=== PATIENT | female | born 1935 | race Caucasian/White ===

== ENCOUNTER 2020-09-13 10:58 | Inpatient (IN) | payer BC, MEDICARE ==
[2020-09-13] MEDS ORDERED: Zolpidem 5 MG Tab PO PRN (11:40)
[2020-09-13] MEDS: Acetaminophen/HYDROcodone 325-10 MG Tab PO PRN ×2 (15:45→23:11)
[2020-09-13] MEDS: Amitriptyline 10 MG Tab PO SCH (19:44)
[2020-09-13] MEDS: Ascorbic Acid 500 MG Tab PO SCH (19:45)
[2020-09-13] MEDS ORDERED: CALCIUM CARBONATE PO SCH (20:00)
[2020-09-13] MEDS ORDERED: [UNRECOGNIZED DRUG - OTHER] PO SCH (20:00)
[2020-09-13] MEDS ORDERED: Non-Formulary Medication 1 Each (Ascorbic Acid [Vitamin C] 1,000 MG) PO SCH (20:00)
[2020-09-13] MEDS ORDERED: VITAMIN D3 PO SCH (20:00)
[2020-09-14] MEDS: Losartan 25 MG Tab PO SCH (08:04)
[2020-09-14] MEDS: Thiamine 100 MG Tab PO SCH (08:04)
[2020-09-14] MEDS: Ascorbic Acid 500 MG Tab PO SCH ×2 (08:04→19:59)
[2020-09-14] MEDS: Calcium Carbonate/Vitamin D3 1500 MG-400 Units Tab PO SCH ×2 (08:04→19:59)
[2020-09-14] MEDS: Cholecalciferol (Vitamin D3) 2,000 Unit Cap PO SCH (08:05)
--- NOTE | 2020-09-14 09:05 | PCM.HP.2 ---
H&P History of Present Illness - General Date of Service: 09/13/20 Admit Problem/Dx: Admission Diagnosis/Problem Admission Diagnosis/Problem Weakness - History of Present Illness Initial Comments - Free Text/Narative: This is a 84yo F here for post op rehabilitation and care post laparoscopic reduction of incarcerated spigelian hernia and repair with primary closure and mesh and Covid diagnosis. Patient continues to have oral pain meds on board with PT/OT rehabilitation in progress. Duration of Symptoms: Reports: Chronic Location: Reports: Generalized Severity: Moderate Improves with: Reports: None Worsens with: Reports: None Associated Symptoms: Reports: Weakness Lower Back Pain Score (Numeric/FACES): 5 - Related Data Allergies/Adverse Reactions: Allergies Allergy/AdvReac Type Severity Reaction Status Date / Time codeine Allergy Vomiting Verified 09/13/20 11:21 shellfish derived Allergy Vomiting Verified 09/13/20 11:21 Sulfa (Sulfonamide Allergy Itching Verified 09/13/20 11:20 Antibiotics) zolpidem [From Ambien] AdvReac Intermediate Other Verified 09/14/20 04:58 Home Medications: Home Meds Alendronate Sodium [Fosamax] 70 mg PO PRINGLE 09/13/20 [History] Amitriptyline [Elavil] 30 mg PO BEDTIME 09/13/20 [History] Ascorbic Acid [Vitamin C] 1,000 mg PO BID 09/13/20 [History] Calcium Carbonate/Vitamin D3 [Calcium Carbonate/Vitamin D 600 MG-200 Unit] 1 tab PO BID 09/13/20 [History] Cholecalciferol (Vitamin D3) [Vitamin D3] 2,000 unit PO DAILY 09/13/20 [History] Hydrocodone/Acetaminophen [Hydrocodon-Acetaminophn 10-325] 1 tab PO TID PRN 09/13/20 [History] Losartan [Cozaar] 25 mg PO DAILY 09/13/20 [History] Thiamine [Vitamin B-1] 1 tab PO DAILY 09/13/20 [History] Zolpidem [Ambien] 0.5 tab PO BEDTIME PRN 09/13/20 [History] Past Medical History Cardiovascular History: Reports: Hypertension Gastrointestinal History: Reports: Bowel Obstruction Musculoskeletal History: Reports: Back Pain, Chronic - Infectious Disease History Infectious Disease History: Reports: Other (See Below) Other Infectious Disease History: Current Covid-19 - Past Surgical History HEENT Surgical History: Reports: Cataract Surgery Cardiovascular Surgical History: Reports: None GI Surgical History: Reports: Hernia Repair/Other Female Surgical History: Reports: Hysterectomy Musculoskeletal Surgical History: Reports: Knee Replacement Social & Family History - Family History Family Medical History: Unobtainable - Tobacco Use Tobacco Use Status *Q: Never Tobacco User Second Hand Smoke Exposure: No - Caffeine Use Caffeine Use: Reports: Coffee, Soda - Recreational Drug Use Recreational Drug Use: No H&P Review of Systems - Review of Systems: Review Of Systems: Comprehensive ROS is negative, except as noted in HPI. Exam - Exam Exam: See Below - Vital Signs Vital Signs: Last Vital Signs Temp 37.2 C 09/14/20 08:00 Pulse 99 09/14/20 08:00 Resp 18 09/14/20 08:00 BP 106/94 H 09/14/20 08:04 Pulse Ox 94 L 09/14/20 08:00 Weight: 59.732 kg - Exam General: Alert, Oriented, Cooperative HEENT: PERRLA, Conjunctiva Clear, EACs Clear Neck: Supple, Trachea Midline Lungs: Normal Respiratory Effort, Rhonchi Cardiovascular: Regular Rate, Regular Rhythm GI/Abdominal Exam: Normal Bowel Sounds Back Exam: Normal Inspection Extremities: Normal Inspection Peripheral Pulses: 2+: Dorsalis Pedis (L), Dorsalis Pedis (R) Skin: Warm, Dry, Intact - Patient Data Result Diagrams: 09/18/20 10:30 09/18/20 10:30 Sepsis Event Note - Evaluation Sepsis Screening Result: No Definite Risk - Focused Exam Vital Signs: Vital Signs Temp Pulse Resp BP BP Pulse Ox 09/14/20 08:04 106/94 H 09/14/20 08:00 37.2 C 99 18 106/94 H 94 L - Problem List (1) Physical deconditioning SNOMED Code(s): 99543107002157 ICD Code: R53.81 - OTHER MALAISE Status: Acute Current Visit: Yes (2) COVID-19 SNOMED Code(s): 936075489 ICD Code: U07.1 - COVID-19 Status: Acute Current Visit: Yes (3) Post-op pain SNOMED Code(s): 957305172 ICD Code: G89.18 - OTHER ACUTE POSTPROCEDURAL PAIN Status: Acute Current Visit: Yes Problem List Initiated/Reviewed/Updated: Yes Orders Last 24hrs: Active Orders 24 hr Category Date Time Status Admission Status [Patient Status] [ADT] Routine ADT 09/13/20 14:15 Active Nurse Communication: Isolation [RC] ASDIRECTED Care 09/14/20 08:18 Active OT Evaluation and Treatment [CONS] Routine Cons 09/13/20 11:27 Active PT Evaluation and Treatment [CONS] Routine Cons 09/13/20 11:24 Active Regular Diet [DIET] Diet 09/13/20 Dinner Ordered Soft Diet [DIET] Diet 09/13/20 Dinner Ordered Acetaminophen/HYDROcodone [[place] 325-10 MG] Med 09/13/20 12:40 Active 1 tab PO TID PRN Alendronate [Fosamax] Med 09/18/20 08:37 Ordered 70 mg PO PRINGLE Amitriptyline [Elavil] Med 09/13/20 20:00 Active 30 mg PO BEDTIME Ascorbic Acid [Vitamin C] Med 09/13/20 20:00 Active 1,000 mg PO BID Calcium Carbonate/Vitamin D3 [Caltrate 600+D 1500 MG- Med 09/14/20 08:00 Active 400 Units] 1 tab PO BID Cholecalciferol (Vitamin D3) [Vitamin D3] Med 09/14/20 08:00 Active 2,000 unit PO DAILY Losartan [Cozaar] Med 09/14/20 08:00 Active 25 mg PO DAILY Thiamine [Vitamin B-1] Med 09/14/20 08:00 Active 100 mg PO DAILY Isolation [COMM] Routine Oth 09/14/20 08:17 Active Resuscitation Status Routine Resus Stat 09/13/20 11:23 Ordered Medication Orders Hydrocodone Bitart/Acetaminophen ([place] 325-10 Mg) 1 tab PO TID PRN PRN Reason: Pain Last Admin: 09/13/20 23:11 Dose: 1 tab Documented by: [id number] Admin: 09/13/20 15:45 Dose: 1 tab Documented by: REAL Alendronate Sodium (Fosamax) 70 mg PO PRINGLE EMELINA Amitriptyline HCl (Elavil) 30 mg PO BEDTIME EMELINA Last Admin: 09/13/20 19:44 Dose: 30 mg Documented by: [id number] Ascorbic Acid (Vitamin C) 1,000 mg PO BID EMELINA Last Admin: 12/02/20 08:04 Dose: 1,000 mg Documented by: Admin: 09/13/20 19:45 Dose: 1,000 mg Documented by: LOUISA Calcium Carbonate (Caltrate 600+D 1500 Mg-400 Units) 1 tab PO BID [facility] Last Admin: 09/14/20 08:04 Dose: 1 tab Documented by: ASHUTOSH Cholecalciferol (Vitamin D3) 2,000 unit PO DAILY [facility] Last Admin: 09/14/20 08:05 Dose: 2,000 unit Documented by: ASHUTOSH Losartan Potassium (Cozaar) 25 mg PO DAILY [facility] Last Admin: 09/14/20 08:04 Dose: 25 mg Documented by: ASHUTOSH Thiamine HCl (Vitamin B-1) 100 mg PO DAILY [facility] Last Admin: 09/14/20 08:04 Dose: 100 mg Documented by: ASHUTOSH Assessment/Plan Comment:: Patient to continue with PT/OT and pain management. She will remain isolated in the Covid unit until she has completed her quarantine.
[2020-09-14] MEDS ORDERED: Menthol/Zinc Oxide Ointment 113 GM Tube TOP ONE (10:01)
[2020-09-14] MEDS: Menthol/Zinc Oxide Ointment 113 GM Tube TOP PRN (10:04)
[2020-09-14] MEDS ORDERED: Ondansetron 4 MG Tab.DIS ONE (10:59)
[2020-09-14] MEDS ORDERED: Tuberculin, PPD 5 Units/0.1 ML 1 ML MDV IDERM ONE (11:00)
[2020-09-14] MEDS: Ondansetron 4 MG Tab.DIS PO PRN (11:04)
[2020-09-14] MEDS: Acetaminophen/HYDROcodone 325-10 MG Tab PO PRN (18:20)
[2020-09-14] MEDS: Amitriptyline 10 MG Tab PO SCH (19:59)
[2020-09-15] MEDS: Cholecalciferol (Vitamin D3) 2,000 Unit Cap PO SCH (08:29)
[2020-09-15] MEDS: Acetaminophen/HYDROcodone 325-10 MG Tab PO PRN (08:30)
[2020-09-15] MEDS: Ascorbic Acid 500 MG Tab PO SCH ×2 (08:30→19:29)
[2020-09-15] MEDS: Thiamine 100 MG Tab PO SCH (08:31)
[2020-09-15] MEDS: Losartan 25 MG Tab PO SCH (08:32)
[2020-09-15] MEDS: Calcium Carbonate/Vitamin D3 1500 MG-400 Units Tab PO SCH ×2 (08:32→19:30)
[2020-09-15] MEDS: Menthol/Zinc Oxide Ointment 113 GM Tube TOP PRN (12:06)
[2020-09-15] MEDS: Acetaminophen/HYDROcodone 325-10 MG Tab PO SCH ×2 (15:20→19:30)
[2020-09-15] MEDS: Amitriptyline 10 MG Tab PO SCH (19:29)
[2020-09-16] MEDS: Acetaminophen/HYDROcodone 325-10 MG Tab PO SCH ×4 (05:21→16:54)
[2020-09-16] MEDS: Calcium Carbonate/Vitamin D3 1500 MG-400 Units Tab PO SCH ×2 (07:56→20:04)
[2020-09-16] MEDS: Losartan 25 MG Tab PO SCH (07:57)
[2020-09-16] MEDS: Cholecalciferol (Vitamin D3) 2,000 Unit Cap PO SCH (07:57)
[2020-09-16] MEDS: Thiamine 100 MG Tab PO SCH (07:57)
[2020-09-16] MEDS: Ascorbic Acid 500 MG Tab PO SCH ×2 (07:57→20:03)
[2020-09-16] MEDS: Amitriptyline 10 MG Tab PO SCH (20:03)
[2020-09-16] MEDS: Acetaminophen/HYDROcodone 325-10 MG Tab PO PRN (20:04)
[2020-09-17] MEDS ORDERED: Melatonin 3 MG Tab PO PRN (07:07)
[2020-09-17] MEDS: Acetaminophen/HYDROcodone 325-10 MG Tab PO PRN ×2 (08:15→19:38)
[2020-09-17] MEDS: Cholecalciferol (Vitamin D3) 2,000 Unit Cap PO SCH (08:16)
[2020-09-17] MEDS: Calcium Carbonate/Vitamin D3 1500 MG-400 Units Tab PO SCH ×2 (08:16→19:39)
[2020-09-17] MEDS: Losartan 25 MG Tab PO SCH (08:17)
[2020-09-17] MEDS: Ascorbic Acid 500 MG Tab PO SCH ×2 (08:19→19:40)
[2020-09-17] MEDS: Thiamine 100 MG Tab PO SCH (08:19)
[2020-09-17] MEDS ORDERED: methylPREDNISolone Sodium Succinate 125 MG/2 ML SDV IM ONE (14:45)
[2020-09-17] MEDS ORDERED: Albuterol 8 GM Inhaler INH PRN (14:45)
--- NOTE | 2020-09-17 14:57 | PCM.PN ---
- General Info Date of Service: 09/17/20 Admission Dx/Problem (Free Text): Admission Diagnosis/Problem Admission Diagnosis/Problem Weakness Subjective Update: Patient with saturations of 89%. She denies shortness of breath or cough. No fever. Patient is here for weakness and nursing states that she only ambulates to go to the bathroom and isn't eating very much at meals. Functional Status: Reports: Ambulating, Urinating, Incentive Spirometry - Review of Systems General: Reports: Weakness Pulmonary: Reports: Wheezing Cardiovascular: Reports: No Symptoms Skin: Reports: No Symptoms Neurological: Reports: No Symptoms - Patient Data Vitals - Most Recent: Last Vital Signs Temp 37.1 C 09/17/20 08:00 Pulse 90 09/17/20 08:00 Resp 16 09/17/20 08:00 BP 108/52 L 09/17/20 08:17 Pulse Ox 92 L 09/17/20 08:00 Weight - Most Recent: 59.732 kg Med Orders - Current: Current Medications Hydrocodone Bitart/Acetaminophen ([place] 325-10 Mg) 1 tab PO Q6H PRN PRN Reason: Pain (severe 7-10) Last Admin: 09/17/20 08:15 Dose: 1 tab Documented by: Albuterol (Ventolin Hfa) 0 gm INH Q4H PRN PRN Reason: Wheezing Alendronate Sodium (Fosamax) 70 mg PO Pruett@0730 [facility] Amitriptyline HCl (Elavil) 30 mg PO BEDTIME [facility] Last Admin: 09/16/20 20:03 Dose: 30 mg Documented by: Ascorbic Acid (Vitamin C) 1,000 mg PO BID [facility] Last Admin: 09/17/20 08:19 Dose: 1,000 mg Documented by: Calamine/Phenol (Calmoseptine) 1 gm TOP QID PRN PRN Reason: Rash Last Admin: 09/15/20 12:06 Dose: 1 applic Documented by: Calcium Carbonate (Caltrate 600+D 1500 Mg-400 Units) 1 tab PO BID [facility] Last Admin: 09/17/20 08:16 Dose: 1 tab Documented by: Cholecalciferol (Vitamin D3) 2,000 unit PO DAILY [facility] Last Admin: 09/17/20 08:16 Dose: 2,000 unit Documented by: Losartan Potassium (Cozaar) 25 mg PO DAILY [facility] Last Admin: 09/17/20 08:17 Dose: 25 mg Documented by: Melatonin (Melatonin) 6 mg PO BEDTIME PRN PRN Reason: Insomnia Ondansetron HCl (Zofran Odt) 4 mg PO Q6H PRN PRN Reason: Nausea/Vomiting Last Admin: 09/14/20 11:04 Dose: 4 mg Documented by: Senna/Docusate Sodium (Senna Plus) 1 tab PO BEDTIME EMELINA Thiamine HCl (Vitamin B-1) 100 mg PO DAILY EMELINA Last Admin: 09/17/20 08:19 Dose: 100 mg Documented by: Discontinued Medications Hydrocodone Bitart/Acetaminophen ([place] 325-10 Mg) 1 tab PO TID PRN PRN Reason: Pain Last Admin: 09/15/20 08:30 Dose: 1 tab Documented by: Hydrocodone Bitart/Acetaminophen ([place] 325-10 Mg) 1 tab PO Q4H EMELINA Last Admin: 09/16/20 16:54 Dose: Not Given Documented by: Calamine/Phenol (Calmoseptine) Confirm Administered Dose 113 gm TOP .STK-MED ONE Stop: 09/14/20 10:02 Last Admin: 09/14/20 10:57 Dose: Not Given Documented by: Methylprednisolone Sodium Succinate (Solu-Medrol) 125 mg IM ONETIME ONE Stop: 09/17/20 14:46 Ondansetron HCl (Zofran Odt) Confirm Administered Dose 4 mg .ROUTE .STK-MED ONE Stop: 09/14/20 11:00 Last Admin: 09/14/20 11:07 Dose: Not Given Documented by: Tuberculin PPD (Aplisol) 5 unit IDERM ONETIME ONE Stop: 09/14/20 11:01 Last Admin: 09/14/20 14:49 Dose: 5 unit Documented by: Zolpidem Tartrate (Ambien) 2.5 mg PO BEDTIME PRN PRN Reason: Insomnia Last Admin: 09/13/20 19:48 Dose: 2.5 mg Documented by: - Exam General: Alert, Oriented, Cooperative Neck: Supple Lungs: Normal Respiratory Effort, Decreased Breath Sounds, Wheezing, Other (decreased BS LLL and wheezing to DAVID) Cardiovascular: Regular Rate, Regular Rhythm, No Murmurs, Murmurs Extremities: Normal Inspection Skin: Warm, Dry, Intact Neurological: No New Focal Deficit Psy/Mental Status: Alert, Normal Affect, Normal Mood Physical Findings Comments:: needs assistance to sit up in bed Sepsis Event Note - Evaluation Sepsis Screening Result: No Definite Risk - Focused Exam Vital Signs: Vital Signs Temp Pulse Resp BP BP Pulse Ox 09/17/20 08:17 108/52 L 09/17/20 08:00 37.1 C 90 16 108/52 L 92 L - Problem List Review Problem List Initiated/Reviewed/Updated: Yes - My Orders Last 24 Hours: My Active Orders 09/17/20 14:44 Chest 1V Frontal [CR] Stat 09/17/20 14:45 RT Post Treatment Assessment [RC] Click to Edit Albuterol [Ventolin HFA] 2 gm INH Q4H PRN 09/18/20 07:30 Alendronate [Fosamax] 70 mg PO Pruett@0730 - Assessment Assessment:: CXR, solumedrol, and albuterol inhaler Q4 hours. Incentive spirometry every 4 hours with inhaler treatment. - Plan Plan:: No pneumonia. Will order albuterol inhaler 2 puffs every 4 hours prn. Incentive spirometry every 4 hours while awake. Zofran prn every 6 hours with pain medication, this may help with her appetite.
[2020-09-17] MEDS: Amitriptyline 10 MG Tab PO SCH (19:38)
[2020-09-17] MEDS: Ondansetron 4 MG Tab.DIS PO PRN (19:39)
[2020-09-18] MEDS ORDERED: Alendronate 70 MG Tab PO SCH (07:30)
[2020-09-18] MEDS: Ascorbic Acid 500 MG Tab PO SCH ×2 (08:52→19:25)
[2020-09-18] MEDS: Losartan 25 MG Tab PO SCH (08:52)
[2020-09-18] MEDS: Cholecalciferol (Vitamin D3) 2,000 Unit Cap PO SCH (08:53)
[2020-09-18] MEDS: Thiamine 100 MG Tab PO SCH (08:53)
[2020-09-18] MEDS: Calcium Carbonate/Vitamin D3 1500 MG-400 Units Tab PO SCH ×2 (08:53→19:25)
[2020-09-18] MEDS ORDERED: Acetaminophen 325 MG Tab PO PRN (08:59)
--- NOTE | 2020-09-18 14:30 | CR ---
DATE OF SERVICE: 09/14/20 CLINICAL DATA: diminished bs on left; r/o pna AP CHEST: No priors. The heart is normal. The aorta is calcified and ectatic. There is poorly defined in the right mid lung. Pneumonia should be considered. There are atelectatic changes in the right lung with eventration of the right hemidiaphragm. There are multiple healed rib fractures on the right with adjacent pleural thickening. The left lung is clear. No pneumothorax. No pleural effusions. There is degenerative disc disease throughout the thoracic spine. There is scoliosis of the lower thoracic spine. There are surgical clips in the right upper abdomen. [id number] MTDD
[2020-09-18] MEDS ORDERED: Acetaminophen/HYDROcodone 325-10 MG Tab PO PRN (16:00)
[2020-09-18] MEDS: Vitamins A and D Oint 5 GM UD Packet TOP PRN (17:11)
[2020-09-18] MEDS: Acetaminophen/HYDROcodone 325-10 MG Tab PO PRN (18:15)
[2020-09-18] MEDS ORDERED: Amitriptyline 10 MG Tab ONE (19:14)
[2020-09-18] MEDS: Amitriptyline 10 MG Tab PO SCH (19:25)
[2020-09-19] MEDS: Ascorbic Acid 500 MG Tab PO SCH ×2 (09:02→19:18)
[2020-09-19] MEDS: Calcium Carbonate/Vitamin D3 1500 MG-400 Units Tab PO SCH ×2 (09:02→19:18)
[2020-09-19] MEDS: Losartan 25 MG Tab PO SCH (09:02)
[2020-09-19] MEDS: Thiamine 100 MG Tab PO SCH (09:03)
[2020-09-19] MEDS: Cholecalciferol (Vitamin D3) 2,000 Unit Cap PO SCH (09:03)
[2020-09-19] MEDS: Acetaminophen/HYDROcodone 325-10 MG Tab PO PRN ×2 (13:29→19:28)
--- NOTE | 2020-09-19 16:07 | PCM.PN ---
- General Info Date of Service: 09/19/20 Subjective Update: Patient seen face to face. She has been improving gradually and requiring PT and OT rehabilitation. Her pain has been under control. Functional Status: Reports: Pain Controlled - Review of Systems General: Reports: Weakness HEENT: Reports: No Symptoms Pulmonary: Reports: No Symptoms Cardiovascular: Reports: No Symptoms Gastrointestinal: Reports: No Symptoms Genitourinary: Reports: No Symptoms Musculoskeletal: Reports: No Symptoms Neurological: Reports: Weakness Psychiatric: Reports: No Symptoms - Patient Data Vitals - Most Recent: Last Vital Signs Temp 36.4 C 09/19/20 09:00 Pulse 85 09/19/20 09:00 Resp 16 09/19/20 09:00 BP 108/70 09/19/20 09:02 Pulse Ox 90 L 09/19/20 09:00 Weight - Most Recent: 61.235 kg I&O - Last 24 Hours: Intake & Output 09/19/20 09/19/20 09/19/20 06:59 14:59 22:59 Intake Total 400 Balance 400 Med Orders - Current: Current Medications Hydrocodone Bitart/Acetaminophen ([place] 325-10 Mg) 1 tab PO Q6H PRN PRN Reason: Pain (moderate 4-6) Last Admin: 09/19/20 13:29 Dose: 1 tab Documented by: Albuterol (Ventolin Hfa) 0 gm INH Q4H PRN PRN Reason: Wheezing Last Admin: 09/17/20 18:36 Dose: 1 puff Documented by: Alendronate Sodium (Fosamax) 70 mg PO Pruett@0730 [facility] Last Admin: 09/18/20 08:53 Dose: 70 mg Documented by: Amitriptyline HCl (Elavil) 30 mg PO BEDTIME [facility] Last Admin: 09/18/20 19:25 Dose: 30 mg Documented by: Ascorbic Acid (Vitamin C) 1,000 mg PO BID [facility] Last Admin: 09/19/20 09:02 Dose: 1,000 mg Documented by: Calamine/Phenol (Calmoseptine) 1 gm TOP QID PRN PRN Reason: Rash Last Admin: 09/15/20 12:06 Dose: 1 applic Documented by: Calcium Carbonate (Caltrate 600+D 1500 Mg-400 Units) 1 tab PO BID [facility] Last Admin: 09/19/20 09:02 Dose: 1 tab Documented by: Cholecalciferol (Vitamin D3) 2,000 unit PO DAILY [facility] Last Admin: 09/19/20 09:03 Dose: 2,000 unit Documented by: Losartan Potassium (Cozaar) 25 mg PO DAILY [facility] Last Admin: 09/19/20 09:02 Dose: 25 mg Documented by: Ondansetron HCl (Zofran Odt) 4 mg PO Q6H PRN PRN Reason: Nausea/Vomiting Last Admin: 09/17/20 19:39 Dose: 4 mg Documented by: Senna/Docusate Sodium (Senna Plus) 2 tab PO BID [facility] Thiamine HCl (Vitamin B-1) 100 mg PO DAILY [facility] Last Admin: 09/19/20 09:03 Dose: 100 mg Documented by: Vitamin A/Vitamin D (Vitamin A & D) 0 gm TOP Q2H PRN PRN Reason: Dryness Last Admin: 09/18/20 17:11 Dose: 1 gm Documented by: Discontinued Medications Acetaminophen (Tylenol) 650 mg PO Q6H PRN PRN Reason: Pain (moderate 4-6) Hydrocodone Bitart/Acetaminophen ([place] 325-10 Mg) 1 tab PO TID PRN PRN Reason: Pain Last Admin: 09/15/20 08:30 Dose: 1 tab Documented by: Hydrocodone Bitart/Acetaminophen ([place] 325-10 Mg) 1 tab PO Q4H [facility] Last Admin: 09/16/20 16:54 Dose: Not Given Documented by: Hydrocodone Bitart/Acetaminophen ([place] 325-10 Mg) 1 tab PO Q6H PRN PRN Reason: Pain (severe 7-10) Last Admin: 09/18/20 18:15 Dose: 1 tab Documented by: Hydrocodone Bitart/Acetaminophen ([place] 325-10 Mg) 0.5 tab PO Q6H PRN PRN Reason: Pain (moderate 4-6) Amitriptyline HCl (Elavil) Confirm Administered Dose 20 mg .ROUTE .STK-MED ONE Stop: 09/18/20 19:15 Last Admin: 09/18/20 19:25 Dose: Not Given Documented by: Calamine/Phenol (Calmoseptine) Confirm Administered Dose 113 gm TOP .STK-MED ONE Stop: 09/14/20 10:02 Last Admin: 09/14/20 10:57 Dose: Not Given Documented by: Melatonin (Melatonin) 6 mg PO BEDTIME PRN PRN Reason: Insomnia Last Admin: 09/18/20 21:42 Dose: 6 mg Documented by: Methylprednisolone Sodium Succinate (Solu-Medrol) 125 mg IM ONETIME ONE Stop: 09/17/20 14:46 Last Admin: 09/17/20 18:35 Dose: 125 mg Documented by: Ondansetron HCl (Zofran Odt) Confirm Administered Dose 4 mg .ROUTE .STK-MED ONE Stop: 09/14/20 11:00 Last Admin: 09/14/20 11:07 Dose: Not Given Documented by: Senna/Docusate Sodium (Senna Plus) 1 tab PO BEDTIME EMELINA Last Admin: 09/18/20 19:25 Dose: 1 tab Documented by: Tuberculin PPD (Aplisol) 5 unit IDERM ONETIME ONE Stop: 09/14/20 11:01 Last Admin: 09/14/20 14:49 Dose: 5 unit Documented by: Zolpidem Tartrate (Ambien) 2.5 mg PO BEDTIME PRN PRN Reason: Insomnia Last Admin: 09/13/20 19:48 Dose: 2.5 mg Documented by: - Exam General: Alert, Oriented, Cooperative HEENT: Pupils Equal, Pupils Reactive, EOMI Neck: Supple Lungs: Normal Respiratory Effort, Rhonchi Cardiovascular: Regular Rate, Regular Rhythm GI/Abdominal Exam: Normal Bowel Sounds, Soft, Non-Tender, No Abnormal Bruit Extremities: Normal Inspection Peripheral Pulses: 2+: Dorsalis Pedis (L), Dorsalis Pedis (R) Skin: Warm, Dry, Intact Psy/Mental Status: Alert, Normal Affect, Normal Mood Sepsis Event Note - Evaluation Sepsis Screening Result: No Definite Risk - Focused Exam Vital Signs: Vital Signs Temp Pulse Resp BP BP Pulse Ox 09/19/20 09:02 108/70 09/19/20 09:00 36.4 C 85 16 108/70 90 L - Problem List & Annotations (1) COVID-19 SNOMED Code(s): 280897448 Code(s): U07.1 - COVID-19 Status: Resolved Current Visit: Yes (2) Physical deconditioning SNOMED Code(s): 41923658474709 Code(s): R53.81 - OTHER MALAISE Status: Acute Priority: High Current Visit: Yes (3) Post-op pain SNOMED Code(s): 430555189 Code(s): G89.18 - OTHER ACUTE POSTPROCEDURAL PAIN Status: Acute Priority: High Current Visit: Yes - Problem List Review Problem List Initiated/Reviewed/Updated: Yes - My Orders Last 24 Hours: My Active Orders 09/18/20 20:00 Vitamins A and D [Vitamin A & D] 0 gm TOP Q2H PRN 09/19/20 12:00 Acetaminophen/HYDROcodone [[place] 325-10 MG] 1 tab PO Q6H PRN 09/19/20 20:00 Docusate Sodium/Sennosides [Senna Plus] 2 tab PO BID - Assessment Assessment:: CXR, solumedrol, and albuterol inhaler Q4 hours. Incentive spirometry every 4 hours with inhaler treatment. - Plan Plan:: No pneumonia. Will order albuterol inhaler 2 puffs every 4 hours prn. Incentive spirometry every 4 hours while awake. Zofran prn every 6 hours with pain medication, this may help with her appetite. Patient seen face to face fro home health care. Recommendation for continued PT/OT at home to continue assessing for strengthening and ADLs. Patient will continue to require family support due to her physical deconditioning and weakness and difficulty with ADLs.
[2020-09-19] MEDS: Amitriptyline 10 MG Tab PO SCH (19:18)
[2020-09-20] MEDS: Acetaminophen/HYDROcodone 325-10 MG Tab PO PRN (08:18)
[2020-09-20] MEDS: Cholecalciferol (Vitamin D3) 2,000 Unit Cap PO SCH (08:20)
[2020-09-20] MEDS: Calcium Carbonate/Vitamin D3 1500 MG-400 Units Tab PO SCH ×2 (08:20→19:17)
[2020-09-20] MEDS: Ascorbic Acid 500 MG Tab PO SCH ×2 (08:21→19:17)
[2020-09-20] MEDS: Losartan 25 MG Tab PO SCH (08:21)
[2020-09-20] MEDS: Thiamine 100 MG Tab PO SCH (08:25)
[2020-09-20] MEDS: Acetaminophen/HYDROcodone 325-5 MG Tab PO PRN (18:23)
[2020-09-20] MEDS: Amitriptyline 10 MG Tab PO SCH (19:18)
[2020-09-21] MEDS: Losartan 25 MG Tab PO SCH (08:24)
[2020-09-21] MEDS: Ascorbic Acid 500 MG Tab PO SCH ×2 (08:24→20:00)
[2020-09-21] MEDS: Thiamine 100 MG Tab PO SCH (08:24)
[2020-09-21] MEDS: Cholecalciferol (Vitamin D3) 2,000 Unit Cap PO SCH (08:24)
[2020-09-21] MEDS: Calcium Carbonate/Vitamin D3 1500 MG-400 Units Tab PO SCH ×2 (08:25→20:00)
[2020-09-21] MEDS: Acetaminophen/HYDROcodone 325-5 MG Tab PO PRN ×2 (13:19→20:09)
[2020-09-21] MEDS: Amitriptyline 10 MG Tab PO SCH (20:01)
[2020-09-22] MEDS: Acetaminophen/HYDROcodone 325-5 MG Tab PO PRN ×3 (04:58→17:59)
[2020-09-22] MEDS: Cholecalciferol (Vitamin D3) 2,000 Unit Cap PO SCH (07:40)
[2020-09-22] MEDS: Ascorbic Acid 500 MG Tab PO SCH ×2 (07:40→20:12)
[2020-09-22] MEDS: Thiamine 100 MG Tab PO SCH (07:40)
[2020-09-22] MEDS: Calcium Carbonate/Vitamin D3 1500 MG-400 Units Tab PO SCH ×2 (07:40→20:12)
[2020-09-22] MEDS: Losartan 25 MG Tab PO SCH (07:41)
--- NOTE | 2020-09-22 15:22 | PCM.DCSUM1 ---
Discharge Summary - Discharge Data Discharge Date: 09/23/20 Discharge Disposition: Home, Self-Care 01 Condition: Good - Referral to Home Health Primary Care Physician: PCP None - Discharge Diagnosis/Problem(s) (1) COVID-19 SNOMED Code(s): 586653136 ICD Code: U07.1 - COVID-19 Status: Resolved Current Visit: Yes (2) Physical deconditioning SNOMED Code(s): 20617067182451 ICD Code: R53.81 - OTHER MALAISE Status: Acute Priority: High Current Visit: Yes (3) Post-op pain SNOMED Code(s): 684672819 ICD Code: G89.18 - OTHER ACUTE POSTPROCEDURAL PAIN Status: Acute Priority: High Current Visit: Yes - Patient Summary/Data Consults: Consultations 09/13/20 11:24 PT Evaluation and Treatment [CONS] Routine Please Evaluate and Treat. PT Reason for Consult: Strengthening This query below is only for informational purposes and is not editable. 09/13/20 11:27 OT Evaluation and Treatment [CONS] Routine Please Evaluate and Treat. OT Reason for Consult: ADL's This query below is only for informational purposes and is not editable. 09/17/20 19:01 Consult to Dietary [Consult to Sheet Sewer] [CONS] Routine Comment: Physician Instructions: Quantity: Reason for Consult: Decreased appetite, poor intake - Patient Instructions Diet: Regular Diet as Tolerated Activity: As Tolerated, No Strenuous Activities Driving: Do Not Drive Showering/Bathing: May Shower - Discharge Plan Prescriptions/Med Rec: Ondansetron [Zofran ODT] 4 mg PO Q6H PRN #30 tab.dis PRN Reason: Nausea/Vomiting Home Medications: Home Meds Alendronate Sodium [Fosamax] 70 mg PO PRUETT 09/13/20 [History] Amitriptyline [Elavil] 30 mg PO BEDTIME 09/13/20 [History] Ascorbic Acid [Vitamin C] 1,000 mg PO BID 09/13/20 [History] Calcium Carbonate/Vitamin D3 [Calcium Carbonate/Vitamin D 600 MG-200 Unit] 1 tab PO BID 09/13/20 [History] Cholecalciferol (Vitamin D3) [Vitamin D3] 2,000 unit PO DAILY 09/13/20 [History] Hydrocodone/Acetaminophen [Hydrocodon-Acetaminophn 10-325] 1 tab PO TID PRN 09/13/20 [History] Losartan [Cozaar] 25 mg PO DAILY 09/13/20 [History] Thiamine [Vitamin B-1] 1 tab PO DAILY 09/13/20 [History] Zolpidem [Ambien] 0.5 tab PO BEDTIME PRN 09/13/20 [History] Albuterol [Ventolin HFA] 0 gm INH Q4H PRN inhaler 09/22/20 [Rx] Docusate Sodium/Sennosides [Senna Plus] 2 tab PO BID tablet 09/22/20 [Rx] Menthol/Zinc Oxide [Calmoseptine] 1 gm TOP QID PRN tube 09/22/20 [Rx] Ondansetron [Zofran ODT] 4 mg PO Q6H PRN #30 tab.dis 09/22/20 [Rx] Vitamins A and D [Vitamin A & D] 0 gm TOP Q2H PRN packet 09/22/20 [Rx] Patient Handouts: Docusate Sodium; Senna tablets or capsules, Constipation, Adult - Discharge Summary/Plan Comment DC Time >30 min.: Yes Discharge Summary/Plan Comment: Patient counseled on home health care, physical therapy, occupational therapy, pain management, supportive and conservative care at home. Patient to f/u with PCP at home within a week and return to clinic or ER as needed if any concerns or issues. Home health will maintain continuity of care and PT/OT for further strength, ADL's and further re-assessment as needed. Travel by private vehicle with RN. - Patient Data Vitals - Most Recent: Last Vital Signs Temp 36.8 C 09/22/20 10:00 Pulse 78 09/22/20 10:00 Resp 16 09/22/20 10:00 BP 104/67 09/22/20 10:00 Pulse Ox 97 09/22/20 10:00 Weight - Most Recent: 61.235 kg I&O - Last 24 hours: Intake & Output 09/22/20 09/22/20 09/22/20 06:59 14:59 22:59 Intake Total 240 Balance 240 Med Orders - Current: Current Medications Hydrocodone Bitart/Acetaminophen ([place] 325-5 Mg) 1 tab PO Q6H PRN PRN Reason: Pain Last Admin: 09/22/20 12:26 Dose: 1 tab Documented by: Albuterol (Ventolin Hfa) 0 gm INH Q4H PRN PRN Reason: Wheezing Last Admin: 09/17/20 18:36 Dose: 1 puff Documented by: Alendronate Sodium (Fosamax) 70 mg PO Pruett@[id number] [facility] Last Admin: 09/18/20 08:53 Dose: 70 mg Documented by: Amitriptyline HCl (Elavil) 30 mg PO BEDTIME [facility] Last Admin: 09/21/20 20:01 Dose: 30 mg Documented by: Ascorbic Acid (Vitamin C) 1,000 mg PO BID [facility] Last Admin: 09/22/20 07:40 Dose: 1,000 mg Documented by: Calamine/Phenol (Calmoseptine) 1 gm TOP QID PRN PRN Reason: Rash Last Admin: 09/15/20 12:06 Dose: 1 applic Documented by: Calcium Carbonate (Caltrate 600+D 1500 Mg-400 Units) 1 tab PO BID [facility] Last Admin: 09/22/20 07:40 Dose: 1 tab Documented by: Cholecalciferol (Vitamin D3) 2,000 unit PO DAILY [facility] Last Admin: 09/22/20 07:40 Dose: 2,000 unit Documented by: Losartan Potassium (Cozaar) 25 mg PO DAILY [facility] Last Admin: 09/22/20 07:41 Dose: 25 mg Documented by: Ondansetron HCl (Zofran Odt) 4 mg PO Q6H PRN PRN Reason: Nausea/Vomiting Last Admin: 09/17/20 19:39 Dose: 4 mg Documented by: Senna/Docusate Sodium (Senna Plus) 2 tab PO BID [facility] Last Admin: 09/22/20 07:40 Dose: 2 tab Documented by: Thiamine HCl (Vitamin B-1) 100 mg PO DAILY [facility] Last Admin: 09/22/20 07:40 Dose: 100 mg Documented by: Vitamin A/Vitamin D (Vitamin A & D) 0 gm TOP Q2H PRN PRN Reason: Dryness Last Admin: 09/18/20 17:11 Dose: 1 gm Documented by: Discontinued Medications Acetaminophen (Tylenol) 650 mg PO Q6H PRN PRN Reason: Pain (moderate 4-6) Hydrocodone Bitart/Acetaminophen ([place] 325-10 Mg) 1 tab PO TID PRN PRN Reason: Pain Last Admin: 12/03/20 08:30 Dose: 1 tab Documented by: Hydrocodone Bitart/Acetaminophen ([place] 325-10 Mg) 1 tab PO Q4H [facility] Last Admin: 09/16/20 16:54 Dose: Not Given Documented by: Hydrocodone Bitart/Acetaminophen ([place] 325-10 Mg) 1 tab PO Q6H PRN PRN Reason: Pain (severe 7-10) Last Admin: 09/18/20 18:15 Dose: 1 tab Documented by: Hydrocodone Bitart/Acetaminophen ([place] 325-10 Mg) 0.5 tab PO Q6H PRN PRN Reason: Pain (moderate 4-6) Hydrocodone Bitart/Acetaminophen ([place] 325-10 Mg) 1 tab PO Q6H PRN PRN Reason: Pain (moderate 4-6) Last Admin: 09/20/20 08:18 Dose: 1 tab Documented by: Amitriptyline HCl (Elavil) Confirm Administered Dose 20 mg .ROUTE .STK-MED ONE Stop: 09/18/20 19:15 Last Admin: 09/18/20 19:25 Dose: Not Given Documented by: Calamine/Phenol (Calmoseptine) Confirm Administered Dose 113 gm TOP .STK-MED ONE Stop: 09/14/20 10:02 Last Admin: 09/14/20 10:57 Dose: Not Given Documented by: Melatonin (Melatonin) 6 mg PO BEDTIME PRN PRN Reason: Insomnia Last Admin: 09/18/20 21:42 Dose: 6 mg Documented by: Methylprednisolone Sodium Succinate (Solu-Medrol) 125 mg IM ONETIME ONE Stop: 09/17/20 14:46 Last Admin: 09/17/20 18:35 Dose: 125 mg Documented by: Ondansetron HCl (Zofran Odt) Confirm Administered Dose 4 mg .ROUTE .STK-MED ONE Stop: 09/14/20 11:00 Last Admin: 09/14/20 11:07 Dose: Not Given Documented by: Senna/Docusate Sodium (Senna Plus) 1 tab PO BEDTIME [facility]INA Last Admin: 09/18/20 19:25 Dose: 1 tab Documented by: Tuberculin PPD (Aplisol) 5 unit IDERM ONETIME ONE Stop: 09/14/20 11:01 Last Admin: 09/14/20 14:49 Dose: 5 unit Documented by: Zolpidem Tartrate (Ambien) 2.5 mg PO BEDTIME PRN PRN Reason: Insomnia Last Admin: 09/13/20 19:48 Dose: 2.5 mg Documented by:
[2020-09-22] MEDS: Amitriptyline 10 MG Tab PO SCH (20:12)
[2020-09-22] MEDS: Vitamins A and D Oint 5 GM UD Packet TOP PRN (20:16)
[2020-09-23] MEDS: Vitamins A and D Oint 5 GM UD Packet TOP PRN (03:53)
[2020-09-23] MEDS: Thiamine 100 MG Tab PO SCH (07:42)
[2020-09-23] MEDS: Cholecalciferol (Vitamin D3) 2,000 Unit Cap PO SCH (07:42)
[2020-09-23] MEDS: Ascorbic Acid 500 MG Tab PO SCH (07:42)
[2020-09-23] MEDS: Calcium Carbonate/Vitamin D3 1500 MG-400 Units Tab PO SCH (07:43)
[2020-09-23] MEDS: Losartan 25 MG Tab PO SCH (07:43)
[2020-09-23] MEDS: Acetaminophen/HYDROcodone 325-5 MG Tab PO PRN (12:00)
== END 2020-09-23 14:10 | disposition home or self-care (01) | DRG 947 ==
LOC: LB.MS 14:15
PROVIDERS: ADMIT Physician Assistant; ATTEND Family Medicine
PROC: 8E0ZXY6 Isolation (ICD-10-PCS; principal; 2020-09-14)
DX: R53.81 Other malaise (principal); U07.1 COVID-19; G89.18 Other acute postprocedural pain; I10 Essential (primary) hypertension; M54.9 Dorsalgia, unspecified; G89.29 Other chronic pain; Z96.659 Presence of unspecified artificial knee joint; Z88.5 Allergy status to narcotic agent; Z91.013 Allergy to seafood; Z88.2 Allergy status to sulfonamides; Z88.8 Allergy status to other drugs, medicaments and biological substances; Z79.899 Other long term (current) drug therapy; Z98.49 Cataract extraction status, unspecified eye; Z90.710 Acquired absence of both cervix and uterus
CPT/HCPCS: 36415; 71045; 80053; 85025; 86580; 97110-GP; 97161-GP; 97165-GO; 97530-GO; 97530-GP; 97535-GO; 99304; 99308; 99316; A9270-GY; J2930